=== PATIENT | male | born 1955 | race Caucasian/White ===

== ENCOUNTER 2019-01-01 05:57 | Inpatient (IN) | payer BC ==
[~2019-01-01 05:57] MED LIST: Buffered Lidocaine 1% SYRIN* 1 ML/SYRINGE INTRADERM ONE; DiMENhydriNATE IV* 50 MG/ML VIAL IV PUSH PRN; Levalbuterol 0.63MG/3ML NEB* UNIT OF USE INH PRN; Morphine 4 MG/ML VIAL (1 ml) 4 MG/ML VIAL IV PRN; Naloxone* 0.4 MG/ML 1 ML VIAL IV PRN; Ondansetron TAB* 4 MG PO ONE; PROCHLORPERAZINE INJ 5 MG/ML 2 ML VIAL IV PRN; Scopolamine 1.5 mg* PATCH TRANSDERM PRN
[2019-01-01] MEDS ORDERED: Dexamethasone IV* 4 MG/ML 1 ML (4 MG) IV SLOW PU ONE (06:00)
[2019-01-01] MEDS ORDERED: Famotidine IV* 10 MG/ML 2 ML (20 mg) IV ONE (06:00)
[2019-01-01] MEDS ORDERED: Lactated Ringers 1000 ML Bag* 1,000 ML IV SCH (06:00)
[2019-01-01] MEDS ORDERED: Levalbuterol 0.63MG/3ML NEB* UNIT OF USE INH ONE ×2 (06:00→06:44)
--- OUTSIDE RECORDS SUMMARY | 2019-01-01 06:00 | XMS REPORT | Continuity of Care Document ---
:1955 External Reference #:[id number] Author Name Abilio Dillon DO, MPH Address [address] [place] [address], [address] [place] [address] Care Team Providers Name Role Phone Jhonny Flores M.D. Care Team Information [employer] Division Manager Unavailable Danielle Maddox P.A. Primary Care Physician Unavailable Payers Date Identification Numbers Payment Provider Subscriber Effective: 2018 Policy Number: [id number] [employer] [place] Ppo Jeremy Bhatt PayID: [id number] [address] [address] [place] [address] Effective: 2017 Policy Number: [id number] [employer] [place] Jeremy Bhatt Expires: 2018 PayID: [id number] [address] [address] [place] [address] Effective: 2016 Policy Number: [id number] [employer] [place] Ppo Margo Bhatt Expires: 2018 PayID: [id number] [address] [address] [place] [address] Effective: 2015 Policy Number: [id number] [place]/[employer] [place] Ppo Margo Bhatt Expires: 2016 PayID: [id number] [address] [address] [place] [address] Advance Directives Description No Information Available Problems Description No Information Family History Date Family Member(s) Observation Comments Father due to CAD () Mother due to Unknown Causes () Children 3 Siblings 2 Grandchildren Several Social History Type Date Description Comments Sex Unknown Marital Status Occupation [employer] Work Status Currently Working Tobacco Use Start: Unknown Never Smoked Cigarettes Smoking Status Reviewed: 12/11/18 Never Smoked Cigarettes ETOH Use Occasionally consumes alcohol Tobacco Use Start: Unknown Patient has never smoked Allergies, Adverse Reactions, Alerts Date Description Reaction Status Severity Comments 08/31/2016 Penicillin Active Medications Medication Date Status Form Strength Qnty SIG Indications Ordering Provider Oxycodone HCL 09/10/ Active Tablets 5mg 120tab si-2 by Santana 2017 s mouth every Abilio, 4 to 6 DO, MPH hours as directed chronic pain patient Amlodipine / Active Capsules 5-40mg 1 by mouth Unknown Besylate/Benaz 0000 daily epril HCL Advair HFA / Active Aerosol 230-21mcg/ inhale 2 Unknown 0000 Act puffs twice a day Ventolin HFA / Active Aerosol 108(90Base 1-2 puffs Unknown 0000 ) mcg/Act as needed every 4-6 hours for shortness for breath Simvastatin / Active Tablets 10mg 1 by mouth Unknown 0000 daily Singulair / Active Tablets 10mg 30tabs 1 by mouth Unknown 0000 every day Theochron / Active Tablets ER 300mg one a day Unknown 0000 12HR Vitamin D / Active Tablets 1000Unit daily Unknown 0000 Lidocaine 01/30/ Hx Ointment 5% 300gm apply 0.5 Dillon, 2017 - grams to Abilio, 08/06/ the lower DO, MPH 2017 back area 3-4 times a day Diclofenac 01/30/ Hx Gel 3% 300gm apply 0.5 Dillon, Sodium 2017 - gm to the Abilio, 08/06/ lower back DO, MPH 2017 3-4 times a day Oxycodone HCL 08/31/ Hx Tablets 5mg 60tabs si by Santana, 2015 - mouth every Abilio, 09/10/ 8 to 12 DO, MPH 2017 hours as directed chronic pain patient. Theophylline / Hx Tablets ER 100mg 1 and 1/2 Unknown ER 0000 - 12HR tablets by 04/04/ mouth twice 2017 daily Immunizations Description No Information Available Vital Signs Date Vital Result Comment 12/11/2018 9:28am BP Systolic 136 mmHg BP Diastolic 86 mmHg Heart Rate 84 /min Respiratory Rate 20 /min Height 70 inches 5'10" Weight 272.00 lb Pain Level 3 Pain at this time. Pain Level With Medicine 2 on average with meds Pain Level Without Medicine 10 07/10 without meds BMI (Body Mass Index) 39.0 kg/m2 11/13/2018 9:28am BP Systolic 130 mmHg BP Diastolic 84 mmHg Heart Rate 82 /min Respiratory Rate 20 /min Height 70 inches 5'10" Weight 282.00 lb Pain Level 1 Pain at this time. Pain Level With Medicine 1 on average with meds Pain Level Without Medicine 07/10 without meds BMI (Body Mass Index) 40.5 kg/m2 10/11/2018 9:39am BP Systolic 130 mmHg BP Diastolic 84 mmHg Heart Rate 82 /min Respiratory Rate 20 /min Height 70 inches 5'10" Weight 286.00 lb Pain Level 1 Pain at this time. Pain Level With Medicine 1 on average with meds Pain Level Without Medicine 07/10 without meds BMI (Body Mass Index) 41.0 kg/m2 09/05/2018 9:37am BP Systolic 140 mmHg BP Diastolic 84 mmHg Heart Rate 84 /min Respiratory Rate 20 /min Height 70 inches 5'10" Weight 281.00 lb Pain Level 2 Pain at this time. Pain Level With Medicine 2 on average with meds Pain Level Without Medicine 07/10 without meds BMI (Body Mass Index) 40.3 kg/m2 08/07/2018 9:44am BP Systolic 144 mmHg BP Diastolic 86 mmHg Heart Rate 82 /min Respiratory Rate 20 /min Height 70 inches 5'10" Weight 297.00 lb Pain Level 2 Pain at this time. Pain Level With Medicine 1 on average with meds Pain Level Without Medicine 07/10 without meds BMI (Body Mass Index) 42.6 kg/m2 07/11/2018 9:49am BP Systolic 140 mmHg BP Diastolic 86 mmHg Heart Rate 84 /min Respiratory Rate 20 /min Height 70 inches 5'10" Weight 304.00 lb Pain Level 3 Pain at this time. Pain Level With Medicine 2 on average with meds Pain Level Without Medicine 07/10 without meds BMI (Body Mass Index) 43.6 kg/m2 06/07/2018 9:32am BP Systolic 136 mmHg BP Diastolic 84 mmHg Heart Rate 86 /min Respiratory Rate 20 /min Height 70 inches 5'10" Weight 306.00 lb Pain Level 2 Pain at this time. Pain Level With Medicine 1 on average with meds Pain Level Without Medicine 07/10 without meds BMI (Body Mass Index) 43.9 kg/m2 05/07/2018 10:13am BP Systolic 128 mmHg BP Diastolic 82 mmHg Heart Rate 84 /min Respiratory Rate 20 /min Height 70 inches 5'10" Weight 306.00 lb Pain Level 3 Pain at this time. Pain Level With Medicine 3 on average with meds Pain Level Without Medicine 07/10 without meds BMI (Body Mass Index) 43.9 kg/m2 04/08/2018 10:14am BP Systolic 134 mmHg BP Diastolic 82 mmHg Heart Rate 76 /min Respiratory Rate 20 /min Height 70 inches 5'10" Weight 306.00 lb Pain Level 2 Pain at this time. Pain Level With Medicine 1 on average with meds Pain Level Without Medicine 07/10 without meds BMI (Body Mass Index) 43.9 kg/m2 03/08/2018 10:06am BP Systolic 130 mmHg BP Diastolic 74 mmHg Heart Rate 76 /min Respiratory Rate 20 /min Height 70 inches 5'10" Weight 302.00 lb Pain Level 2 Pain at this time. Pain Level With Medicine 1 on average with meds Pain Level Without Medicine 07/10 without meds BMI (Body Mass Index) 43.3 kg/m2 02/06/2018 9:03am BP Systolic 134 mmHg BP Diastolic 80 mmHg Heart Rate 84 /min Respiratory Rate 20 /min Height 70 inches 5'10" Weight 314.00 lb Pain Level 2 Pain at this time. Pain Level With Medicine 2 on average with meds Pain Level Without Medicine 07/10 without meds BMI (Body Mass Index) 45.0 kg/m2 01/07/2018 9:59am BP Systolic 136 mmHg BP Diastolic 86 mmHg Heart Rate 84 /min Respiratory Rate 20 /min Height 70 inches 5'10" Weight 312.00 lb Pain Level 6 Pain at this time. Pain Level With Medicine 5 on average with meds Pain Level Without Medicine 07/10 without meds BMI (Body Mass Index) 44.8 kg/m2 12/05/2017 10:54am BP Systolic 128 mmHg BP Diastolic 74 mmHg Heart Rate 76 /min Respiratory Rate 20 /min Height 70 inches 5'10" Weight 312.00 lb Pain Level 2 Pain at this time. Pain Level With Medicine 2 on average with meds Pain Level Without Medicine 07/10 without meds BMI (Body Mass Index) 44.8 kg/m2 11/09/2017 9:56am BP Systolic 136 mmHg BP Diastolic 84 mmHg Heart Rate 82 /min Respiratory Rate 20 /min Height 70 inches 5'10" Weight 316.00 lb Pain Level 2 Pain at this time. Pain Level With Medicine 2 on average with meds Pain Level Without Medicine 10 07/10 without meds BMI (Body Mass Index) 45.3 kg/m2 10/10/2017 9:33am BP Systolic 140 mmHg BP Diastolic 78 mmHg Heart Rate 80 /min Respiratory Rate 20 /min Height 70 inches 5'10" Weight 316.00 lb Pain Level 1 Pain at this time. Pain Level With Medicine 1 on average with meds Pain Level Without Medicine 10 07/10 without meds BMI (Body Mass Index) 45.3 kg/m2 09/10/2017 10:25am BP Systolic 148 mmHg BP Diastolic 86 mmHg Heart Rate 80 /min Respiratory Rate 20 /min Height 70 inches 5'10" Weight 315.00 lb Pain Level 4 Pain at this time. Pain Level With Medicine 3 on average with meds Pain Level Without Medicine 07/10 without meds BMI (Body Mass Index) 45.2 kg/m2 08/06/2017 10:11am BP Systolic 132 mmHg BP Diastolic 86 mmHg Heart Rate 84 /min Respiratory Rate 20 /min Height 70 inches 5'10" Weight 315.00 lb Pain Level 6 Pain at this time. Pain Level With Medicine 4 on average with meds Pain Level Without Medicine 07/10 without meds BMI (Body Mass Index) 45.2 kg/m2 07/11/2017 9:06am BP Systolic 132 mmHg BP Diastolic 84 mmHg Heart Rate 80 /min Respiratory Rate 20 /min Height 70 inches 5'10" Weight 302.00 lb Pain Level 2 Pain at this time. Pain Level With Medicine 2 on average with meds Pain Level Without Medicine 10 07/10 without meds BMI (Body Mass Index) 43.3 kg/m2 06/06/2017 9:06am BP Systolic 138 mmHg BP Diastolic 80 mmHg Heart Rate 76 /min Respiratory Rate 16 /min Height 70 inches 5'10" Weight 302.00 lb Pain Level 2 2/10, Pain at this time. Pain Level With Medicine 2 2/10, on average with meds Pain Level Without Medicine 10 07/10 without meds BMI (Body Mass Index) 43.3 kg/m2 05/07/2017 9:51am BP Systolic 138 mmHg BP Diastolic 76 mmHg Heart Rate 72 /min Respiratory Rate 16 /min Height 70 inches 5'10" Weight 296.00 lb Pain Level 6 6/10, Pain at this time. Pain Level With Medicine 2 2/10, on average with meds Pain Level Without Medicine 10 07/10 without meds BMI (Body Mass Index) 42.5 kg/m2 04/04/2017 9:39am BP Systolic 132 mmHg BP Diastolic 84 mmHg Heart Rate 78 /min Respiratory Rate 20 /min Height 70 inches 5'10" Weight 302.00 lb Pain Level 4 Pain at this time. Pain Level With Medicine 4 on average with meds Pain Level Without Medicine 10 07/10 without meds BMI (Body Mass Index) 43.3 kg/m2 03/05/2017 9:38am BP Systolic 128 mmHg BP Diastolic 80 mmHg Heart Rate 84 /min Respiratory Rate 20 /min Height 70 inches 5'10" Weight 302.00 lb Pain Level 2 Pain at this time. Pain Level With Medicine 2 on average with meds Pain Level Without Medicine 10 07/10 without meds BMI (Body Mass Index) 43.3 kg/m2 01/25/2017 11:07am BP Systolic 144 mmHg BP Diastolic 86 mmHg Heart Rate 78 /min Respiratory Rate 20 /min Height 70 inches 5'10" Weight 306.00 lb Pain Level 5 Pain at this time. Pain Level With Medicine 5 on average with meds Pain Level Without Medicine 10 07/10 without meds BMI (Body Mass Index) 43.9 kg/m2 12/28/2016 9:15am BP Systolic 128 mmHg BP Diastolic 76 mmHg Heart Rate 78 /min Respiratory Rate 20 /min Height 70 inches 5'10" Weight 294.00 lb Pain Level 4 Pain at this time. Pain Level With Medicine 2 on average with meds Pain Level Without Medicine 10 07/10 without meds BMI (Body Mass Index) 42.2 kg/m2 11/23/2016 2:51pm BP Systolic 130 mmHg BP Diastolic 74 mmHg Heart Rate 76 /min Respiratory Rate 18 /min Height 70 inches 5'10" Weight 294.00 lb Pain Level 4 Pain at this time. Pain Level With Medicine 2 on average with meds Pain Level Without Medicine 10 07/10 without meds BMI (Body Mass Index) 42.2 kg/m2 10/27/2016 9:14am BP Systolic 128 mmHg BP Diastolic 80 mmHg Heart Rate 76 /min Respiratory Rate 16 /min Height 70 inches 5'10" Weight 294.00 lb Pain Level 2 2/10, Pain at this time. Pain Level With Medicine 2 2/10, on average with meds Pain Level Without Medicine 10 07/10 without meds BMI (Body Mass Index) 42.2 kg/m2 09/26/2016 10:27am BP Systolic 128 mmHg BP Diastolic 78 mmHg Heart Rate 72 /min Respiratory Rate 18 /min Height 70 inches 5'10" Weight 302.00 lb Pain Level 2 2/10, Pain at this time. Pain Level With Medicine 2 2/10, on average with meds Pain Level Without Medicine 10 07/10 without meds BMI (Body Mass Index) 43.3 kg/m2 09/14/2016 2:29pm BP Systolic 148 mmHg BP Diastolic 86 mmHg Heart Rate 84 /min Respiratory Rate 20 /min Height 70 inches 5'10" Weight 302.00 lb Pain Level 2 Pain at this time. Pain Level With Medicine 2 on average with meds Pain Level Without Medicine 10 07/10 without meds BMI (Body Mass Index) 43.3 kg/m2 08/31/2016 2:18pm BP Systolic 130 mmHg BP Diastolic 78 mmHg Heart Rate 76 /min Respiratory Rate 20 /min Height 70 inches 5'10" Weight 302.00 lb Pain Level 5 Pain at this time. Pain Level Without Medicine 10 07/10 without meds BMI (Body Mass Index) 43.3 kg/m2 Results Description No Information Available Procedures Date Code Description Status 11/13/2018 54861 Brief Emotional/Behav Assessment W/ Scoring Doc Per Completed Standard Inst 08/07/2018 93768 Therapeutic, Prophylactic Or Diagnostic Injection Subq/Im Completed 07/11/2017 22650 Therapeutic, Prophylactic Or Diagnostic Injection Subq/Im Completed 07/11/2017 69535 Test Autonomic Nervous System, Sudomotor Completed 06/06/2017 82934 Therapeutic, Prophylactic Or Diagnostic Injection Subq/Im Completed 05/07/2017 43929 Therapeutic, Prophylactic Or Diagnostic Injection Subq/Im Completed 04/04/2017 51324 Therapeutic, Prophylactic Or Diagnostic Injection Subq/Im Completed 12/28/2016 64801 Therapeutic, Prophylactic Or Diagnostic Injection Subq/Im Completed 11/23/2016 23398 Therapeutic, Prophylactic Or Diagnostic Injection Subq/Im Completed 09/26/2016 15630 Test Autonomic Nervous System, Sudomotor Completed Encounters Type Date Location Provider Dx Diagnosis Office Visit 11/13/2018 Main Office as Of Abilio Dillon DO [id number] Other chronic pain 9:15a 11/01/13 MPH M19.071 Primary osteoarthritis, right ankle and foot M19.072 Primary osteoarthritis, left ankle and foot E66.01 Morbid (severe) obesity due to excess calories I10 Essential (primary) hypertension J45.998 Other asthma E78.00 Pure hypercholesterolemia, unspecified Z79.891 assisted (current) use of opiate analgesic Z13.31 Encounter for screening for depression Office Visit 10/11/2018 9:45a Main Office as Abilio Dillon G89.29 Other chronic Of 11/01/13 DO, MPH pain M19.071 Primary osteoarthritis, right ankle and foot M19.072 Primary osteoarthritis, left ankle and foot Z79.891 assisted (current) use of opiate analgesic Office Visit 09/05/2018 9:45a Main Office as Abilio Dillon G89.29 Other chronic Of 11/01/13 DO, MPH pain M19.071 Primary osteoarthritis, right ankle and foot M19.072 Primary osteoarthritis, left ankle and foot Z79.891 assisted (current) use of opiate analgesic Z71.89 Other specified counseling Office Visit 08/07/2018 9:30a Main Office as Abilio Dillon G89.29 Other chronic Of 11/01/13 DO, MPH pain M19.071 Primary osteoarthritis, right ankle and foot M19.072 Primary osteoarthritis, left ankle and foot Z79.891 assisted (current) use of opiate analgesic Z71.89 Other specified counseling R53.83 Other fatigue Office Visit 07/11/2018 10:30a Main Office as Abilio Dillon G89.29 Other chronic Of 11/01/13 DO, MPH pain M19.071 Primary osteoarthritis, right ankle and foot M19.072 Primary osteoarthritis, left ankle and foot Z71.89 Other specified counseling Z79.891 assisted (current) use of opiate analgesic Office Visit 06/07/2018 9:45a Main Office as Abilio Dillon G89.29 Other chronic Of 11/01/13 DO, MPH pain M19.071 Primary osteoarthritis, right ankle and foot M19.072 Primary osteoarthritis, left ankle and foot Z71.89 Other specified counseling Z79.891 assisted (current) use of opiate analgesic Office Visit 05/07/2018 10:15a Main Office as Abilio Dillon G89.29 Other chronic Of 11/01/13 DO, MPH pain M19.071 Primary osteoarthritis, right ankle and foot 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 Z71.89 Other specified counseling Office Visit 04/08/2018 10:30a Main Office as Abilio Dillon G89.29 Other chronic Of 11/01/13 DO, MPH pain M19.071 Primary osteoarthritis, right ankle and foot 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 Z71.89 Other specified counseling Office Visit 03/08/2018 10:00a Main Office as Abilio Dillon G89.29 Other chronic Of 11/01/13 DO, MPH pain M19.071 Primary osteoarthritis, right ankle and foot M19.072 Primary osteoarthritis, left ankle and foot Z71.89 Other specified counseling Z79.891 assisted (current) use of opiate analgesic Office Visit 02/06/2018 9:15a Main Office as Abilio Dillon G89.29 Other chronic Of 11/01/13 DO, MPH pain M19.071 Primary osteoarthritis, right ankle and foot M19.072 Primary osteoarthritis, left ankle and foot Z71.89 Other specified counseling 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 Office Visit 01/07/2018 10:15a Main Office as Abilio Dillon G89.29 Other chronic Of 11/01/13 DO, MPH pain M19.071 Primary osteoarthritis, right ankle and foot M19.072 Primary osteoarthritis, left ankle and foot Z71.89 Other specified counseling 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 Office Visit 12/05/2017 10:45a Main Office as Abilio Dillon G89.29 Other chronic Of 11/01/13 DO, MPH pain M19.071 Primary osteoarthritis, right ankle and foot M19.072 Primary osteoarthritis, left ankle and foot 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 Z71.89 Other specified counseling Office Visit 11/09/2017 10:00a Main Office as Abilio Dillon G89.29 Other chronic Of 2/1/14 DO, MPH pain M19.071 Primary osteoarthritis, right ankle and foot M19.072 Primary osteoarthritis, left ankle and foot R53.83 Other fatigue Z79.891 assisted (current) use of opiate analgesic Office Visit 10/10/2017 9:30a Main Office as Abilio Dillon G89.29 Other chronic Of 11/01/13 DO, MPH pain M19.071 Primary osteoarthritis, right ankle and foot M19.072 Primary osteoarthritis, left ankle and foot Z79.891 assisted (current) use of opiate analgesic Office Visit 09/10/2017 10:30a Main Office as Abilio Dillon G89.29 Other chronic Of 11/01/13 DO, MPH pain M19.071 Primary osteoarthritis, right ankle and foot M19.072 Primary osteoarthritis, left ankle and foot 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 Office Visit 08/06/2017 10:15a Main Office as Abilio Dillon G89.29 Other chronic Of 11/01/13 DO, MPH pain M19.072 Primary osteoarthritis, left ankle and foot M19.071 Primary osteoarthritis, right ankle and foot Z79.891 assisted (current) use of opiate analgesic Office Visit 07/11/2017 9:00a Main Office as Abilio Dillon G89.29 Other chronic Of 11/01/13 DO, MPH pain M19.071 Primary osteoarthritis, right ankle and foot M19.072 Primary osteoarthritis, left ankle and foot R53.83 Other fatigue 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 G90.3 Multi-system degeneration of the autonomic nervous system Office Visit 06/06/2017 9:00a Main Office as Charo Webb G89.29 Other chronic Of 11/01/13 FRAME POLISHER pain M19.072 Primary osteoarthritis, left ankle and foot M19.071 Primary osteoarthritis, right ankle and foot Z71.89 Other specified counseling R53.83 Other fatigue 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 Office Visit 05/07/2017 9:30a Main Office as Charo Webb G89.29 Other chronic Of 11/01/13 FRAME POLISHER pain M19.071 Primary osteoarthritis, right ankle and foot M19.072 Primary osteoarthritis, left ankle and foot R53.83 Other fatigue Z71.89 Other specified counseling Z79.891 assisted (current) use of opiate analgesic Office Visit 04/04/2017 10:00a Main Office as Abilio Dillon G89.29 Other chronic Of 11/01/13 DO, MPH pain M19.072 Primary osteoarthritis, left ankle and foot M19.071 Primary osteoarthritis, right ankle and foot J45.998 Other asthma E66.8 Other obesity R53.83 Other fatigue Z71.3 Dietary counseling and surveillance G47.30 Sleep apnea, unspecified 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 Office Visit 03/05/2017 9:45a Main Office as Abilio Dillon G89.29 Other chronic Of 11/01/13 DO, MPH pain M19.072 Primary osteoarthritis, left ankle and foot M19.071 Primary osteoarthritis, right ankle and foot J45.998 Other asthma E66.8 Other obesity R53.83 Other fatigue 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 Office Visit 01/25/2017 11:30a Main Office as Abilio Dillon G89.29 Other chronic Of 11/01/13 DO, MPH pain M19.072 Primary osteoarthritis, left ankle and foot M19.071 Primary osteoarthritis, right ankle and foot Z79.891 assisted (current) use of opiate analgesic Office Visit 12/28/2016 11:00a Main Office as Abilio Dillon G89.29 Other chronic Of 11/01/13 DO, MPH pain M19.072 Primary osteoarthritis, left ankle and foot M19.071 Primary osteoarthritis, right ankle and foot R53.83 Other fatigue 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 Office Visit 11/23/2016 3:00p Main Office as Abilio Dillon G89.29 Other chronic Of 11/01/13 DO, MPH pain M19.072 Primary osteoarthritis, left ankle and foot M19.071 Primary osteoarthritis, right ankle and foot Z79.891 assisted (current) use of opiate analgesic R53.83 Other fatigue Office Visit 10/27/2016 9:00a Main Office as Charo Webb G89.29 Other chronic Of 11/01/13 FRAME POLISHER pain M19.072 Primary osteoarthritis, left ankle and foot M19.071 Primary osteoarthritis, 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 Office Visit 09/26/2016 10:00a Main Office as Charo Webb G89.29 Other chronic Of 11/01/13 FRAME POLISHER pain M19.071 Primary osteoarthritis, right ankle and foot M19.072 Primary osteoarthritis, left ankle and foot G90.3 Multi-system degeneration of the autonomic nervous system 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 Office Visit 09/14/2016 2:30p Main Office as Abilio Dillon G89.29 Other chronic Of 11/01/13 MARTINEZ JIMENEZ pain M19.072 Primary osteoarthritis, left ankle and foot M19.071 Primary osteoarthritis, right ankle and foot Office Visit 08/31/2016 2:00p Main Office as Abilio Dillon G89.29 Other chronic Of 11/01/13 DO MPH pain M19.072 Primary osteoarthritis, left ankle and foot M19.071 Primary osteoarthritis, right ankle and foot Z71.89 Other specified counseling Z71.3 Dietary counseling and surveillance 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 Symptoms and complaints discussed and reviewed today. No significant changes in physical findings. Continue current medical pain management.M19.071 Primary osteoarthritis, right ankle and footComments: Chronic. Symptoms and complaints discussed and reviewed today. No significant changes in physical findings. Continue current medical pain management.M19.072 Primary osteoarthritis, left ankle and footComments:Chronic. Symptoms and complaints discussed and reviewed today. No significant changes in physical findings. Continue current medical pain management.Z79.891 assisted (current) use of opiate analgesicNew Labs:Urine Drug Screen, Ordered: 12/11/18Comments: Urine drug screen sample taken today to monitor opiate use and to monitor use of illicit substances.Will discuss results at next appointment.The following tests were ordered:6 AM, AMPH, GRZEGORZ, TALA, BUP, CARIS, COCM, COT, ETG, FENT, MCSHSG, OPI, OXY, PCP, TAPEN, XTSY, ZOLP. A urine drug test (UDT) was ordered for this patient and collected on site today. Creatinine has been ordered as well for specimen validity, not for kidney function. Preliminary UDT results are not final and should not be used to determine patient care or plan of treatment. Initially a qualitative immunoassay screen will be done. Any inconsistent or positive findings will be further tested with a more comprehensive quantitative confirmation LCMS study. It is part of the treatment process of prescribing controlled substances and is considered standard of care.AllComments:All above symptoms and complaints discussed as well as diagnoses reviewed.Continue trial of opioid pain management - note changes below ; injection therapy, osteopathic manipulation (OMT), PT / modalities, and consults as needed to manage chronic pain.Side effects discussed; anticipatory guidance given. Patient clearly understands and agrees with all medical treatments and suggestions. All medicines prescribed are adequate and appropriate for this patient's complaint of pain, medical history, physical, and personal goals.Goals of Treatment are to provide adequate and appropriate multidisciplinary medical pain management to increase/ maintain patient's quality of life and functionality while maintaining satisfactory side effect profile and minimizing alf end-organ damage. Activity as toleratedContinue with PCP
[2019-01-01] MEDS ORDERED: Heparin VIAL(*) 5000 UNITS/ML VIAL (FIVE THOUSAND) ONE (06:44)
[2019-01-01] MEDS ORDERED: Ondansetron ODT TAB* 4 MG ONE (06:44)
[2019-01-01] MEDS ORDERED: Ciprofloxacin 400MG IVPREMIX(* 400 MG/200 ML BAG ONE (06:44)
[2019-01-01] MEDS ORDERED: Buffered Lidocaine 1% SYRIN* 1 ML/SYRINGE INTRADERM ONE (06:44)
[2019-01-01] MEDS ORDERED: Dexamethasone IV* 4 MG/ML 1 ML (4 MG) ONE (06:44)
[2019-01-01] MEDS ORDERED: Clindamycin 900 MG/D5W BAG(*) 900 MG/50 ML BAG IVPB ONE (06:44)
[2019-01-01] MEDS ORDERED: Famotidine IV* 10 MG/ML 2 ML (20 mg) ONE (06:45)
[2019-01-01] MEDS ORDERED: Bupivacaine 0.25% EPI 200,000* 30 ML SDV ONE ×2 (07:11→09:05)
[2019-01-01] MEDS ORDERED: KETAMINE HCL* 50 MG/ML 10 ML VIAL ONE (07:22)
[2019-01-01] MEDS ORDERED: Midazolam* 1 MG/ML 5 ML VIAL (5 MG) ONE (07:22)
[2019-01-01] MEDS ORDERED: fentaNYL* 50 MCG/ML 5 ML VIAL (250 MCG VIAL) ONE (07:22)
[2019-01-01] MEDS ORDERED: Atracurium* 10 MG/ML 10 ML VIAL ONE (07:22)
[2019-01-01] MEDS ORDERED: Propofol* 10 MG/ML 20 ML BTL ONE (08:21)
[2019-01-01] MEDS ORDERED: Neostigmine Methylsulfate* 1 MG/ML 10 ML VIAL (1 mg/ml) ONE (08:21)
[2019-01-01] MEDS ORDERED: Glycopyrrolate IV* 0.2 MG/ML 1 ML VIAL ONE (08:21)
[2019-01-01] MEDS ORDERED: Lidocaine 2% PF * 5 ML VIAL ONE (08:24)
[2019-01-01] MEDS ORDERED: Scopolamine 1.5 mg* PATCH ONE (08:24)
[2019-01-01] MEDS ORDERED: Phenylephrine 10 MG/ML VIAL* 1 ML VIAL ONE (08:24)
[2019-01-01] MEDS ORDERED: Morphine 10 MG/ML VIAL (1 ml) ONE (08:59)
[2019-01-01] MEDS ORDERED: Ondansetron INJ* 2 MG/ML VIAL IV PRN (09:28)
[2019-01-01] MEDS ORDERED: diPHENhydraMINE IV* 50 MG/ML 1 ml VIAL (BENADRYL) SLOW PUSH PRN (09:28)
[2019-01-01] MEDS ORDERED: fentaNYL* 50 MCG/ML 2 ML VIAL (100 MCG VIAL) ONE ×2 (09:35→10:14)
[2019-01-01] MEDS: fentaNYL* 50 MCG/ML 2 ML VIAL (100 MCG VIAL) IV PRN ×4 (09:36→10:32)
[2019-01-01] MEDS ORDERED: DiMENhydriNATE IV* 50 MG/ML VIAL ONE (09:40)
[2019-01-01] MEDS ORDERED: Albuterol HFA INHALER* 8 gm MDI INH PRN (09:41)
[2019-01-01] MEDS ORDERED: Morphine 4 MG/ML VIAL (1 ml) 4 MG/ML VIAL ONE (09:58)
[2019-01-01] MEDS ORDERED: Ketorolac INJ* 30 MG/ML 1 ML VIAL ONE (11:08)
[2019-01-01] MEDS: Ketorolac INJ* 30 MG/ML 1 ML VIAL IV PRN ×2 (11:10→19:45)
[2019-01-01] MEDS: Lactated Ringers 1000 ML Bag* 1,000 ML IV SCH ×2 (11:30→18:21)
[2019-01-01] MEDS: HYDROmorphone INJ1* 1 MG/ML SYRINGE IV SLOW PU PRN ×3 (11:41→16:46)
[2019-01-01] MEDS: Heparin VIAL(*) 5000 UNITS/ML VIAL (FIVE THOUSAND) SUBCUT SCH ×2 (13:53→21:41)
--- NOTE | 2019-01-01 15:16 | OP ---
CC: [facility]; Dr. Brown, Cardiology, [place]; MARIYA Alberto * DATE OF OPERATION: 01/01/19 - ROOM #347 DATE OF : 59 SURGEON: Rufino Portillo MD HONING MACHINE OPERATOR: Myrtle Trinh NP ANESTHESIOLOGIST: Dr. Toussaint. ANESTHESIA: General anesthesia. PRE-OP DIAGNOSES: 1. Clinically severe obesity. 2. Hypertension. 3. Hypercholesterolemia. POST-OP DIAGNOSES: 1. Clinically severe obesity. 2. Hypertension. 3. Hypercholesterolemia. OPERATIVE PROCEDURE: Laparoscopic sleeve gastrectomy. ESTIMATED BLOOD LOSS: Minimal. SPECIMEN: Portion of the stomach. FLUIDS: Crystalloid fluid given. DRAINS: None. DESCRIPTION OF PROCEDURE: Mr. Bhatt was identified in the preoperative area. Case was discussed with him and his family members. Consent was signed. He was marked and taken to the operating room, placed on the operating table in supine position. Preoperative antibiotics were given. Sequential devices were placed on bilateral lower extremities. General anesthesia was induced. The patient's abdomen was prepped and draped in standard surgical fashion and a time -out was performed. Folds of the umbilicus were elevated anteriorly and a Veress needle was inserted into the abdominal cavity, which was then allowed to insufflate to a pressure of 15 mmHg. The patient tolerated the insufflation well. A 12-mm Optiview trocar was then inserted midway between the xiphoid and the umbilicus just to the left of midline. Laparoscope was inserted through this. There was no evidence of injury from the trocar insertion or from the Veress needle, which was then removed. Additional trocars were then placed in the following position: Two 5-mm in the left upper quadrant and a 12-mm in the right upper quadrant. Review of the abdomen showed no adhesions, no hernias. Liver was appropriate size with some heterogeneity, but no discrete lesions. Next, a Erica retractor was inserted through a subxiphoid incision and the liver was retracted anteriorly to the right. This exposed the gastroesophageal fat pad, which was grasped and retracted towards the right lower quadrant. Blunt and sharp dissection was carried out to expose the left crura and no hiatal hernia was identified. Next, a retrogastric tunnel was made along the greater curvature 6 cm from the pylorus. We took the vasculature to the greater curvature with LigaSure device right up to the angle of His that had been previously dissected. Posterior attachments were similarly taken until the stomach could be completely rotated along its axis. Next, a sleeve stomach was fashioned using all 60-mm purple ANEESH stapling devices with reinforcement strips. This was done over a 40-Vincentian bougie that the anesthesiologist placed into the distal stomach. We kept the true line that did not show any corkscrewing and utilized 5 loads in all. The bougie was removed. Stomach was completely transected. Review of the staple line showed no irregularities of the axel and appeared intact with no rotation. The transected stomach was then placed in an endoscopic retrieval bag. We then removed the Erica retractor and let the liver fall back down onto the anterior aspect of the stomach. The table was repositioned to neutral and the stomach was removed in its endoscopic retrieval bag through the right upper quadrant port site. This port site was dilated with Gia clamp and then reapproximated at the fascial layer after the specimen was removed with an 0 Polysorb suture using a Weck device. The abdomen was allowed to collapse. Trocars were removed under direct vision and all skin incisions were reapproximated with 4-0 Monocryl subcuticular sutures followed by Steri-Strips and sterile dressing. The patient tolerated the procedure well, was woken up in the OR, and transferred to the PACU in stable condition. [id number]/[facility] #: [id number] YURI
[2019-01-01] MEDS: Mometasone/Formoter 200/5 MDI INH SCH (20:16)
[2019-01-01] MEDS: Famotidine IV* 10 MG/ML 2 ML (20 mg) IV SLOW PU SCH (21:38)
[2019-01-02] MEDS: Lactated Ringers 1000 ML Bag* 1,000 ML IV SCH (01:04)
[2019-01-02] MEDS: HYDROmorphone INJ1* 1 MG/ML SYRINGE IV SLOW PU PRN ×4 (01:09→20:31)
[2019-01-02] MEDS: Ketorolac INJ* 30 MG/ML 1 ML VIAL IV PRN ×3 (03:09→17:02)
[2019-01-02] MEDS: Heparin VIAL(*) 5000 UNITS/ML VIAL (FIVE THOUSAND) SUBCUT SCH ×3 (06:05→22:47)
[2019-01-02] MEDS: D5W 1/2 NS KCl 20 Meq 1000 ML* 1,000 ML IV SCH ×2 (07:38→16:10)
[2019-01-02] MEDS: Famotidine IV* 10 MG/ML 2 ML (20 mg) IV SLOW PU SCH ×2 (07:46→20:32)
[2019-01-02] MEDS: Mometasone/Formoter 200/5 MDI INH SCH ×2 (07:49→20:11)
--- NOTE | 2019-01-02 11:45 | PN ---
Progress Note - Progress Note Date of Service: 01/02/19 SOAP: Subjective: Patient seen and examined. Patient feeling well today. No nausea. Some abdominal pain. Objective: Temp Pulse Resp BP Pulse Ox 98.4 F 86 18 136/72 94 01/02/19 07:38 01/02/19 08:28 01/02/19 09:03 01/02/19 08:28 01/02/19 08:28 Intake & Output 01/01/19 01/02/19 01/02/19 22:59 06:59 14:59 Intake Total 983 977 980 Output Total 625 700 400 Balance 358 277 580 Alert and oriented 3, in no apparent distress lungs clear abdomen: Soft, nondistended, incisional tenderness. Dressings intact with no erythema extremities within normal limits EKG reviewed and shows a PVC. Assessment: postop day 1 laparoscopic sleeve gastrectomy. Hemodynamically stable Plan: Upper GI today. Likely will start fluids. Possible discharge home today.
[2019-01-02] MEDS ORDERED: HYDROcodone/ACET. 7.5/325 LIQ* 15 ML UDC PO PRN (17:05)
[2019-01-03] MEDS: D5W 1/2 NS KCl 20 Meq 1000 ML* 1,000 ML IV SCH (01:26)
[2019-01-03] MEDS: Heparin VIAL(*) 5000 UNITS/ML VIAL (FIVE THOUSAND) SUBCUT SCH (05:15)
[2019-01-03] MEDS: HYDROmorphone INJ1* 1 MG/ML SYRINGE IV SLOW PU PRN (05:15)
[2019-01-03] MEDS: Famotidine IV* 10 MG/ML 2 ML (20 mg) IV SLOW PU SCH (08:41)
[2019-01-03] MEDS: Mometasone/Formoter 200/5 MDI INH SCH (09:52)
[2019-01-03 09:53] VITALS: BP 147/83
--- NOTE | 2019-01-03 12:58 | DS ---
CC: MARIYA Alberto; [facility]* DISCHARGE SUMMARY: DATE OF ADMISSION: 01/01/19 DATE OF DISCHARGE: 01/03/19 HISTORY/HOSPITAL COURSE: Mr. Bhatt is a 63-year-old gentleman worked up as an outpatient with clinically severe obesity, presented to the hospital on same day of surgery, underwent a laparoscopic sleeve gastrectomy. Please see operative report for details. In postoperative period, the patient is doing well, had some nausea, was treated. He had some abdominal pain, which was treated with narcotics. He was ambulatory on postoperative day #1 and underwent his upper GI study, which was within normal limits as expected and the patient was started on oral diet, tolerated the diet. By postoperative day #2, the patient continued to have some intermittent abdominal pain and was otherwise feeling well and tolerating liquids. PHYSICAL EXAM: On day of discharge, was performed. The patient was afebrile. T- max is 99.2. Vital signs are stable. Alert and oriented x3. No apparent distress. Head, ears, eyes, and throat: Normocephalic, atraumatic. Sclerae anicteric. Mucous membranes moist. Lungs: Clear to auscultation bilaterally. Abdomen: Soft, obese, nontender. Skin with mild ecchymosis, but no erythema. Dressing is removed. Steri-Strips in place. Rectal exam not performed. No CVA tenderness. Extremities: Within normal limits, with no calf tenderness. PLAN: Discharge home. The patient has a followup appointment in early next week with me. He understands postoperative diet plans of liquid diet for now with some sips. He will take his medications. We have held his blood pressure medications and his cholesterol medications. I have added omeprazole 20 mg daily to his regimen. He will take pain medications, but would like to keep him off of NSAIDs and this was discussed. The patient is discharged home in stable condition. [id number]/[facility] #: [id number] [facility]
[2019-01-04] MEDS ORDERED: Scopolamine PATCH Remove* 1 NOTE MISC PATCH OFF ONE (05:56)
== END 2019-01-03 12:00 | disposition home or self-care (01) | DRG 403 ==
LOC: AA 05:57 → SSU 09:28
PROVIDERS: ADMIT Surgery; ATTEND Surgery
PROC: 0DB64Z3 Excision of Stomach, Percutaneous Endoscopic Approach, Vertical (ICD-10-PCS; principal; 2019-01-01 07:30)
DX: E66.01 Morbid (severe) obesity due to excess calories (principal); E78.5 Hyperlipidemia, unspecified; Z68.41 Body mass index [BMI] 40.0-44.9, adult; R11.0 Nausea; I10 Essential (primary) hypertension; G47.33 Obstructive sleep apnea (adult) (pediatric); I49.3 Ventricular premature depolarization; J45.40 Moderate persistent asthma, uncomplicated; M15.9 Polyosteoarthritis, unspecified; M10.9 Gout, unspecified; J44.9 Chronic obstructive pulmonary disease, unspecified; E78.00 Pure hypercholesterolemia, unspecified; K64.8 Other hemorrhoids; K21.9 Gastro-esophageal reflux disease without esophagitis; Z86.19 Personal history of other infectious and parasitic diseases; Z82.61 Family history of arthritis; Z80.9 Family history of malignant neoplasm, unspecified; Z83.49 Family history of other endocrine, nutritional and metabolic diseases; Z72.89 Other problems related to lifestyle; Z82.49 Family history of ischemic heart disease and other diseases of the circulatory system; Z91.19 Patient's noncompliance with other medical treatment and regimen; Z88.0 Allergy status to penicillin
CPT/HCPCS: 43775; 74246; 88307; 93005; 94640; A9270-GY; J0744; J1100; J1170; J1240; J1644; J1885; J2250; J2270; J2405; J2704; J2710; J3010